=== PATIENT | female | born 1980 | race Caucasian/White ===

== ENCOUNTER 2016-10-28 15:00 | Inpatient (IN) | payer OTHER ==
--- NOTE | ~2016-10-28 | HP ---
Unit #: [id number] #: [id number] Patient: SHEY ROMERO [id number] [facility] [address] [place] [address] [id number] I MR#: [id number] NAME: SHEY ROMERO. ROOM: P176 Age: 36 Sex: F Admission Date: 10/29/2016 : 1980 Attending Physician: Torres Hdez M.D. Admitting Physician: Torres Hdez M.D. Primary Care Physician: Qamar Truong M.D. HISTORY AND PHYSICAL HISTORY OF PRESENT ILLNESS Shey is a 36 year old admitted to [facility] because of her continued abuse of alcohol. PAST MEDICAL HISTORY 1. Long history of alcohol abuse 2. History of DTs PAST SURGICAL HISTORY Nothing reported ALLERGIES Prednisone SOCIAL HISTORY Smokes 1 1/2 packs per day. Drinks at least a fifth of vodka on a daily basis. Has a history of illicit substance abuse to include IV heroin but has been clean for many years. FAMILY HISTORY Medically noncontributory. REVIEW OF SYSTEMS CONSTITUTIONAL: No fever or chills. HEENT: Denies any sore throat, ear pain or runny nose. CARDIOVASCULAR: Denies chest pain, irregular heart rhythm or palpitations. CHEST: Denies shortness of breath or cough. No hemoptysis. GASTROINTESTINAL: Denies nausea, vomiting, diarrhea or chronic constipation. ENDOCRINE: Denies history of increased thirst or urination. No recent significant weight loss or gain. GENITOURINARY: Denies dysuria, frequency, or hematuria. SKIN: Denies any rashes. HEMATOLOGIC: Denies history of increased bleeding or bruising. MUSCULOSKELETAL: Denies any hot, swollen joints. No generalized muscle pain. NEUROLOGIC: Denies problems with vision or speech. No frequent, severe headaches. No numbness, tingling or weakness in any extremities. Denies loss of bladder or bowel control. CURRENT MEDICATIONS 1. Latuda 20 mg q.a.m. Unit #: [id number] #: [id number] Patient: SHEY ROMERO 2. Singular 10 mg q.h.s. 3. [place] 300 mg t.i.d. 4. Nicotine patch 7 mg q day 5. Multivitamin 1 q day 6. Milk of Magnesia p.r.n. 7. Maalox p.r.n. 8. Tylenol p.r.n. 9. Detox protocol PHYSICAL EXAMINATION GENERAL: Alert, well-nourished, in no apparent distress. VITAL SIGNS: Blood pressure 120/74, heart rate 96, respirations 16, temperature 98.6. WEIGHT: 115 pounds. HEIGHT: 5'7". SKIN: Warm and dry without rash or lesion. HEENT: Normocephalic. TMs not viewed. Oral and nasal passages clear. Conjunctivae clear. Pupils equal, round and reactive to light and accommodation. Extraocular movements intact. NECK: Supple without lymphadenopathy or thyromegaly. HEART: Regular rate and rhythm without murmur. LUNGS: Clear. ABDOMEN: Soft, nontender. : Not done. EXTREMITIES: No evidence of cyanosis, clubbing or edema. Moves all extremities without focal deficit. NEUROLOGICAL: Grossly within normal limits. Cranial Nerves: II: Visual holliday are intact. III, IV AND : Extraocular movements are intact. Pupils are equal, round and reactive to light. V: Facial sensation is grossly normal. VII: Facial movements and expression are normal. VIII: Auditory acuity grossly intact. IX, X: Uvula is midline. Phonation is normal. XI: Patient shrugs shoulders and turns head normally. XII: Tongue protrudes in the midline. Sensory and Motor Function: Sensory and motor sensation is grossly normal. Motor: moves all extremities well. Coordination: Gait is normal. Deep Tendon Reflexes: Intact. IMPRESSION Psychiatric admission RECOMMENDATIONS PSYCHIATRIC: Per psychiatrist. MEDICAL: I see no contraindications to participating in facility's activities. MEDICAL PROGNOSIS Good. MEDICAL CONDITION Stable. Dictated by... Unit #: [id number] #: [id number] Patient: SHEY ROMERO Binh Madrid P.A.-C. for Concepción Schroeder/nikko TD: 10/30/2016 00:07 JOB #: [id number] HISTORY AND PHYSICAL Page 1 of 1 X Yani Madrid HISTORY AND PHYSICAL
--- NOTE | ~2016-10-28 | A ---
[facility] Nutrition Therapy DATE: 10/31/16 Patient: CARA ROMERO Physician: JOHNY Address: [address] [facility] Room/Bed: [address], Zip: [place] [address] Admit Date: 10/29/16 Date of : [birth year] Height: 5 7 Weight: 114 52.75976 NUTRITIONAL ASSESSMENT: REASON: 1 point malnutrition risk score re: unintentional weight loss + low BMI Admitting dx: 36 y/o female admitted with depression, detox from ETOH/cocaine/amphetamines PMH: Long history ETOH abuse, withdrawal seizures, 1.5 ppd smoker, Hepatitis C Anthropometrics: Ht: 67" vs 64", Wt: 115 lbs, BMI: 18 vs 19.7 (underweight vs normal weight), past weights 114-117 lbs Labs: Reviewed; WNL Meds: Balance B-50, MVI, Thiamine, Folic acid, Phenergan/Zofran, Loperamide, Mag-Al, Milk of Mg, psych meds noted Assessment: Chart reviewed, events noted. See reason for assessment, admitting dx and PMH as stated above. Patient broke up with her boyfriend of 1.5 years 2 months ago and relapsed 3 weeks ago, has been living with her mother, unemployed since June of this year. Has been drinking a fifth of vodka daily, also tested positive for cocaine and amphetamines. Note conflicting heights in [employer], but I believe the patien is clinically underweight however she is noted to appear well-nourished. She is tolerating a regular diet, reported a 5 lb weight loss in the past month, however her past weights do not reflect this (117 lbs in Apr 2016, 114 lbs Jun 2016, current wt 115 lbs). She reports fair appetite, has been experiencing moderate withdrawal sx to include nausea and stomach cramps, which are being treated medically. See RD recs below. Dx: 1) Underweight r/t drug/ETOH abuse, depression AEB BMI 18. 2) Unintentional weight loss r/t drug/ETOH abuse, depression AEB 1 point malnutrition risk score, patient reports 5 lb weight loss in 1 month. Intervention: See recs below Monitoring, Evaluation and Goals: 1. PO intake > 50-75% of meals. 2. Gradual weight gain towards a healthy BMI range. Monitor: Per MD consult Recommendations: 1. Continue regular diet, encourage oral intake. If desired, please add large portion [facility] Nutrition Therapy DATE: 10/31/16 Patient: CARA ROMERO Physician: JOHNY Address: [address] Room/Bed: [address], Zip: [place] [address] Admit Date: 10/29/16 Date of : [birth year] Height: 5 7 Weight: 114 52.45230 entree to diet order and RD will approve for lunch and dinner. 2. If PO intake is < 50% of meals please order Ensure Plus BID (available in chocolate or vanilla, requires MD order). 3. Continue daily vitamins and control N/V with Zofran. 4. Please weigh q 3 days for monitoring purposes, as the patient is underweight. 5. Please consult dietitian or call [phone] for further nutritional needs. Mild nutrition risk Respectfully, Betty Harvey RD, LD [facility] cc: client file
--- NOTE | ~2016-10-28 | PN ---
Unit #: [id number] #: [id number] Patient: CARA ROMERO [id number] [facility] [address] [place] [address] [id number] I MR#: [id number] NAME: CARA ROMERO ROOM: P176 Age: 36 Sex: F Admission Date: 10/29/2016 : 1980 Attending Physician: Torres Hdez M.D. Admitting Physician: Torres Hdez M.D. Primary Care Physician: Concepción Garcia PROGRESS NOTES DATE 10/31/2016 DISCUSSION The patient's detox continues uneventfully though her participation within the therapeutic milieu has left much to be desired. Should she sustain progress, discharge will likely take place tomorrow. Dictated by... Torres Hdez M.D. CB/bzg TD: 11/01/2016 07:33 JOB #: [id number] [facility] PROGRESS NOTES Page 1 of 1 X Torres Hdez MD X PROGRESS NOTE
--- NOTE | ~2016-10-28 | PN ---
Unit #: [id number] #: [id number] Patient: CARA ROMERO [id number] [facility] [address] [place] [address] [id number] I MR#: [id number] NAME: CARA ROMERO. ROOM: P176 Age: 36 Sex: F Admission Date: 10/29/2016 : 1980 Attending Physician: Torres Hdez M.D. Admitting Physician: Torres Hdez M.D. Primary Care Physician: Concepción Garcia PROGRESS NOTES DATE 10/30/2016 DISCUSSION The patient awakens for interview today. She admits that she has been drinking heavily. She admits that she has been drinking up to a fifth of hard liquor on a daily basis. She is currently denying suicidal or homicidal ideation but continues to complain of significant symptoms of opioid withdrawal. Dictated by... Torres Hdez M.D. CB/tonio TD: 10/30/2016 16:38 JOB #: [id number] [facility] PROGRESS NOTES Page 1 of 1 X Torres Hdez MD X PROGRESS NOTE
--- NOTE | ~2016-10-28 | DS ---
Unit #: [id number] #: [id number] Patient: CARA ROMERO [id number] [facility] [address] [place] [address] [id number] I MR#: [id number] NAME: ACRA ROMERO. ROOM: 76 Age: 36 Sex: F Admission Date: 10/29/2016 : 1980 Discharge Date: 11/01/2016 Attending Physician: Torres Hdez M.D. Primary Care Physician: Qamar Truong M.D. DISCHARGE SUMMARY REASON FOR ADMISSION The patient is a 36-year-old white female admitted with recurrent abuse of alcohol. HOSPITAL COURSE The patient was admitted to the [facility] unit and place on suicidal precautions. [place] level was pending at the time of discharge. The patient remains seclusive to room but her detox was a fairly uneventful one. She was continued on previously prescribed Latuda, lithium and Singulair during her stay in the hospital Neurontin and Adderall were discontinued. On 11/01 the patient requested discharge and it was so ordered. FINAL DIAGNOSES Alcohol use disorder Bipolar disorder unspecified Asthma. DISPOSITION ON DISCHARGE The patient discharged on the following medication: 1. Latuda 20 mg p.r.n. for depression 2. [place] 300 mg three times daily for mood stabilization 3. Singulair 10 mg at h.s. for asthma No dietary or physical restrictions were placed on the patient at the time of discharge. Followup will take place through the auspices of [facility]. The patient's prognosis is considered fair. Dictated by... Torres Hdez M.D. CB/nikko TD: 11/02/2016 05:51 JOB #: [id number] Unit #: [id number] #: [id number] Patient: CARA ROMERO DISCHARGE SUMMARY Page 1 of 1 X Torres Hdez MD X DISCHARGE SUMMARY
--- NOTE | ~2016-10-28 | PA ---
Unit #: [id number] #: [id number] Patient: CARA ROMERO [id number] [place] [address] [id number] MR#: [id number] NAME: CARA ROMERO. ROOM: P176 Age: 36 Sex: F Admission Date: 10/29/2016 : 1980 Date of Assessment: 10/29/2016 Attending Physician: Torres Hdez M.D. Admitting Physician: Torres Hdez M.D. Primary Care Physician: Qamar Truong M.D. PSYCHIATRIC ASSESSMENT IDENTIFYING INFORMATION The patient is a 36-year-old white female admitted after presenting to this facility with complaints of increased alcohol and cocaine use. INFORMANT(S) Chart. Patient could not be aroused for interview. CHIEF COMPLAINT None given. HISTORY OF PRESENT ILLNESS The patient is a 36-year-old white female who presented to this facility last evening with a blood alcohol of 0.396. Her CIWA score was a 20 and she also tested positive for cocaine and amphetamines. The patient was last hospitalized at this facility in June of this year under similar circumstances. She has a history of alcoholic hallucinosis. The patient has recently broken up with her boyfriend, this was about 2 months ago. She has been living with her mother for the past 2 months. The patient claims that she is prescribed Adderall and Neurontin on an outpatient basis. She has also been prescribed Latuda, lithium and Singulair. When seen today, the patient is sleeping soundly and cannot be aroused for interview. PAST PSYCHIATRIC HISTORY Reviewed, no changes. FAMILY HISTORY Reviewed, no changes. SOCIAL HISTORY Reviewed, no changes. MEDICAL HISTORY Reviewed, no changes. MEDICATION HISTORY 1. Adderall XR. 2. Neurontin. 3. Latuda. 4. [place]. 5. Singulair. ALLERGIES Unit #: [id number] #: [id number] Patient: CARA ROMERO Prednisone. MENTAL STATUS EXAM At this time, reveals the patient to be a well-developed, well-nourished soundly sleeping white female. Multiple attempts to arouse her are unsuccessful. ASSETS AND LIABILITIES Patient's assets to be assessed. Liabilities, ongoing substance use. ADMITTING DIAGNOSES 1. Cocaine use disorder. 2. Alcohol use disorder. 3. Bipolar disorder, unspecified. PSYCHIATRIC PLAN/TREATMENT GOALS The patient remains hospitalized for safety and stabilization. We will continue previously prescribed Latuda and lithium carbonate. Adderall will be discontinued for reasons which should be abundantly clear given the patient's extensive substance abuse history. The patient will participate in appropriate burnette and milieu activities and suicide precautions are in place. ESTIMATED LENGTH OF STAY Five to seven days. Dictated by... Torres Hdez M.D. LAURE/tonio TD: 10/29/2016 16:15 JOB #: [id number] PSYCHIATRIC ASSESSMENT Page 1 of 1 X Torres Hdez MD X PSYCHIATRIC ASSESSMENT
[2016-10-30 09:52] LABS: BASOPHIL% 0.5 % (0-2.5); EOSINOPHIL# 0.3 X10e3 (0-0.7); EOSINOPHIL% 4.5 % (0.0-7.0); HEMATOCRIT 39.7 % (35.0-45.0); HEMOGLOBIN 12.9 gm/dL (12.0-16.0); LYMPHOCYTE# 2.2 X10e3 (1.0-3.5); LYMPHOCYTE% 31.2 % (17.0-45.0); MEAN CELL VOLUME 93.2 FL (83-96); MEAN CORPUSCULAR HEMOGLOBIN 30.2 PG (28-34); MEAN CORPUSCULAR HGB CONC 32.4 g/dL (30-36); MEAN PLATELET VOLUME 8.9 FL (6.5-11.5); MONOCYTE# 0.2 X10e3 (0-1.0); MONOCYTE% 3.3 % (3.0-12.0); NEUTROPHIL# 4.3 X10e3 (1.5-7.1); NEUTROPHIL% 60.5 % (40-75); PLATELET COUNT 170 X10e3 (140-420); RED BLOOD COUNT 4.26 X10e (3.90-5.30); WHITE BLOOD COUNT 7.1 X10e3 (4.0-10.5)
[2016-10-30 10:14] LABS: DIFF IND NO
[2016-10-30 10:29] LABS: THYROID STIMULATING HORMONE 1.33 uIU/ml (0.34-5.60)
[2016-10-30 10:36] LABS: FREE THYROXIN (T4) 0.61 ng/dL (0.58-1.64)
[2016-10-30 10:42] LABS: ALBUMIN SERUM 4.3 g/dL (3.5-5.0); BILIRUBIN,TOTAL 1.4 mg/dL (0.2-2.0); CALCIUM SERUM 9.7 mg/dL (8.4-10.2); CREATININE SERUM 0.5 mg/dL (0.6-1.4); GLOM FILT RATE Estimated 125.4 mL/min (>60); POTASSIUM 4.2 mmol/L (3.5-5.1); PROTEIN TOTAL SERUM 7.2 g/dL (6.0-8.3)
[2016-10-31 12:49] LABS: URINE APPEARANCE CLOUDY; URINE BILIRUBIN NEG (NEG); URINE BLOOD 2+ (NEG); URINE COLOR DK YELLOW; URINE GLUCOSE NEG (NEG); URINE KETONE NEG (NEG); URINE LEUKOCYTE ESTERASE 2+ (NEG); URINE NITRATE POS (NEG); URINE PH 7.5 (5-8); URINE PROTEIN NEG (NEG); URINE SPECIFIC GRAVITY 1.018 (1.003-1.035)
[2016-10-31 12:53] LABS: URBCS1 AUWI 0-2 /[HPF] (0-2); URINE BACTERIA AUWI 4+ (NEGATIVE); URINE SQUAMOUS EPITHELIAL CELL OCC /[HPF]; UWBCS1 AUWI 25-50 (0-5)
[2016-10-31 13:17] LABS: URINE CRYSTALS CALCIUM OXALATE /[HPF]; URINE MUCUS PRESENT
[2016-10-31 13:35] LABS: AMPHETAMINE NEG (NEG); BARBITURATES NEG (NEG); BENZODIAZEPINES POS (NEG); COCAINE POS (NEG); MARIJUANA NEG (NEG); OPIATES NEG (NEG); TRICYCLIC ANTIDEPRESSANTS NEG (NEG); U METHADONE NEG (NEG)
== END 2016-11-01 16:30 | disposition home or self-care (01) | DRG 897 ==
LOC: P1E 10-29 04:32
PROVIDERS: Specialist
DX: F14.10 Cocaine abuse, uncomplicated (principal); F31.9 Bipolar disorder, unspecified; F10.10 Alcohol abuse, uncomplicated; Y90.8 Blood alcohol level of 240 mg/100 ml or more; F17.210 Nicotine dependence, cigarettes, uncomplicated
CPT/HCPCS: 80053; 80307; 81003; 84439; 84443; 84703; 85025; 86592

== ENCOUNTER 2016-10-28 18:25 | Emergency (ER) | payer OTHER ==
[2016-10-28 19:11] LABS: BASOPHIL# 0.1 X10e3 (0-0.3); BASOPHIL% 0.9 % (0-2.5); EOSINOPHIL# 0.1 X10e3 (0-0.7); EOSINOPHIL% 1.7 % (0.0-7.0); HEMATOCRIT 41.8 % (35.0-45.0); HEMOGLOBIN 13.7 gm/dL (12.0-16.0); LYMPHOCYTE# 2.5 X10e3 (1.0-3.5); LYMPHOCYTE% 32.9 % (17.0-45.0); MEAN CELL VOLUME 92.5 FL (83-96); MEAN CORPUSCULAR HEMOGLOBIN 30.4 PG (28-34); MEAN CORPUSCULAR HGB CONC 32.9 g/dL (30-36); MEAN PLATELET VOLUME 7.9 FL (6.5-11.5); MONOCYTE# 0.3 X10e3 (0-1.0); MONOCYTE% 4.2 % (3.0-12.0); NEUTROPHIL# 4.5 X10e3 (1.5-7.1); NEUTROPHIL% 60.3 % (40-75); PLATELET COUNT 204 X10e3 (140-420); RED BLOOD COUNT 4.52 X10e (3.90-5.30); RED CELL DISTRIBUTION WIDTH 15.8 % (11.0-15.5); WHITE BLOOD COUNT 7.5 X10e3 (4.0-10.5)
[2016-10-28 19:14] LABS: DIFF IND NO
[2016-10-28 19:37] LABS: ALBUMIN SERUM 4.7 g/dL (3.5-5.0); BILIRUBIN, DIRECT 0.1 mg/dL (0.0-0.2); BILIRUBIN,INDIRECT 0.8 mg/dL (0.0-0.9); BILIRUBIN,TOTAL 0.9 mg/dL (0.2-2.0); CALCIUM SERUM 8.9 mg/dL (8.4-10.2); CREATININE SERUM 0.6 mg/dL (0.6-1.4); GLOM FILT RATE Estimated 118.1 mL/min (>60); POTASSIUM 3.9 mmol/L (3.5-5.1); PROTEIN TOTAL SERUM 8.2 g/dL (6.0-8.3)
[2016-10-28 20:27] LABS: AMPHETAMINE POS (NEG); BARBITURATES NEG (NEG); BENZODIAZEPINES NEG (NEG); COCAINE POS (NEG); MARIJUANA NEG (NEG); OPIATES NEG (NEG); TRICYCLIC ANTIDEPRESSANTS NEG (NEG); U METHADONE NEG (NEG)
== END 2016-10-29 04:11 | disposition short-term general hospital (02) ==
LOC: CED 18:25
PROVIDERS: Emergency Medicine
DX: F10.229 Alcohol dependence with intoxication, unspecified (principal); F32.9 Major depressive disorder, single episode, unspecified; F17.200 Nicotine dependence, unspecified, uncomplicated
CPT/HCPCS: 36415; 80048; 80076; 80307; 85025; 99283; G0480

== ENCOUNTER 2017-01-22 15:00 | Inpatient (IN) | payer OTHER ==
[~2017-01-22] VITALS: Ht 170.2 cm; Wt 51.7 kg
--- NOTE | ~2017-01-22 | A ---
[facility] Nutrition Therapy DATE: 01/24/17 Patient: CARA ROMERO Physician: JOHNY Address: [address] [place] [address] Room/Bed: [address], Zip: [place] [address] Admit Date: 01/22/17 Date of : [birth year] Height: 5 7 Weight: 113 51.614421 NUTRITIONAL ASSESSMENT: REASON: LOW BMI (17.9) PATIENT ADMITTED FOR ETOH DETOX AND BIPOLAR DISORDER PMH: HEP C Anthropometrics: HT: 67" VS 64", WT: 114#, BMI: 17.9 VS 19.6 (UNDERWEIGHT VS NORMAL WEIGHT) Labs: 01/23/17- GLU: 124, BUN: 5, CREAT: 0.3, POSITIVE BHCG Meds: DETOX PROTOCOL (INCLUDES: MVI, VIT B COMPLEX, ZOFRAN, THIAMIN, AND FOLIC ACID) Assessment: PATIENT IS A 36 Y/O FEMALE ADMITTED FOR BIPOLAR DISORDER AND ETOH DETOX. PATIENT IS CURRENTLY UNEMPLOYED, LIVES WITH HER MOTHER, SMOKES 1/2 PPD, HAS A HX OF HEROIN ABUSE, AND DRINKS ETOH DAILY X 2 WEEKS. PATIENT'S STEPFATHER 2.5 WEEKS AGO AND SHE RELAPSED ON ETOH. IT IS NOTED THAT PATIENT HAS BEEN NON-COMPLIANT WITH HER MEDICATIONS PRIOR TO ADMIT AND SHE HAS A HX OF INPATIENT PSYCH AND CHEMICAL DEPENDENCY HOSPITALIZATIONS. UPON ADMIT PATIENT STATED AN INCREASED APPETITE WITH FLUCTUATING WEIGHTS OF ~5#. WEIGHT HX PER MEDITECH SHOWS STABLE WEIGHTS X LAST 9 MONTHS AND HER UBW SEEMS TO BE ~115#. NURSING REPORTS POOR PO INTAKES. PATIENT IS ACTIVELY DETOXING. IT WAS ALSO DISCOVERED YESTERDAY (01/23/17) THAT PATIENT IS . SHE IS CURRENTLY EXPERIENCING NAUSEA AND VOMITING, WHICH MAY BE ATTRIBUTED TO ETOH DETOX AND POSSIBLY MORNING SICKNESS. IT IS UNCLEAR ATT HOW FAR ALONG PATIENT IS. THE MEDICAL DOCTOR HAS BEEN CONSULTED TO ASSESS PATIENT'S . SHE IS CURRENTLY ON A REGULAR DIET. IT IS BELIEVED THAT PATIENT IS CLINICALLY UNDERWEIGHT, BUT SHE IS NOTED TO BE WELL-DEVELOPED AND WELL-NOURISHED. THERE ARE NO SKIN ISSUES NOTED ATT. WILL CONTINUE TO F/U WITH PO INTAKES, WEIGHT, AND . NURSING REPORTS PATIENT IS CURRENTLY UNAWARE THAT SHE IS AND THEY ARE WAITING FOR DR. DURAN. Dx: INADEQUATE NUTRIENT INTAKE R/T CURRENT CONDITIONS, DETOX AEB LOW BMI, POOR PO INTAKES Intervention: REGULAR DIET, MEDS PER MD, DETOX, PSYCH Monitoring, Evaluation and Goals: 1. ADEQUATE PO INTAKES >50% OF MEALS 2. PREVENT, CORRECT MICRO/MACRO NUTRIENT DEFICIENCIES 3. WEIGHT; PROMOTE A STEADY WEIGHT GAIN TOWARDS A HEALTHY BMI OF 19-25 [facility] Nutrition Therapy DATE: 01/24/17 Patient: CARA Binh ROMERO Physician: JOHNY Address: [address] [place] [address] [facility] Room/Bed: [address], Zip: [place] [address] Admit Date: 01/22/17 Date of : [birth year] Height: 5 7 Weight: [phone] MONITOR: WEIGHTS, LABS, PO/FLUID INTAKES Recommendations: 1. CONTINUE REGULAR DIET TOLERATED. OFFER SNACKS BETWEEN MEALS. IF PATIENT HAS C/O HUNGER PLEASE ORDER LARGER PORTIONS AND RD WILL APPROVE 2. PATIENT IS CURRENTLY EXPERIENCING NAUSEA AND VOMITING. SEND PATIENT SICK TRAYS IF NECESSARY. PATIENT RECEIVES ZOFRAN PRN 3. ENCOURAGE ADEQUATE PO AND FLUID INTAKES. PATIENT HAS AN INCREASED RISK OF DEHYDRATION D/T VOMITING. 4. OBTAIN WEIGHTS ROUTINELY (EVERY 3-4 DAYS) 5. IF PO INTAKES CONTINUE TO BE BELOW 50% OF MEALS CONSIDER ORDERING ENSURE BID TO PROMOTE ADEQUATE PO AND FLUID INTAKES 6. CONSULT RD WITH ANY FURTHER NUTRITION QUESTIONS OR CONCERNS. PATIENT IS CURRENTLY UNAWARE SHE IS . THIS RD UNABLE TO GIVE ANY NUTRITION EDUCATION ATT. RD TO F/U PER PROTOCOL AND PRN R/T PATIENT MILDLY COMPROMISED Respectfully, RADHA MCCONNELL, RD, LD [facility] Nutrition[facility] cc: client file
--- NOTE | ~2017-01-22 | PN ---
Unit #: [id number] #: [id number] Patient: CARA ROMERO [id number] [facility] [address] [place] [address] [id number] MR#: [id number] NAME: CARA ROMERO. ROOM: P185 Age: 36 Sex: F Admission Date: 01/22/2017 : 1980 Attending Physician: Torres Hdez M.D. Admitting Physician: Torres Hdez M.D. Primary Care Physician: Concepción Garcia PROGRESS NOTES DATE 01/24/2017 DISCUSSION We have learned that the patient has a positive HCG. According, any potentially teratogenic medications are being held. I have ordered an initiation of vitamins as well as quantitative HCG. The patient seems unpleasantly surprised by news of her potential . Her detox is otherwise an uneventful one though she is continuing to complain of some significant physical discomfort. Dictated by... Torres Hdez M.D. CB/tonio TD: 01/24/2017 15:40 JOB #: [id number] [facility] PROGRESS NOTES Page 1 of 1 X Torres Hdez MD X PROGRESS NOTE
--- NOTE | ~2017-01-22 | PA ---
Unit #: [id number] #: [id number] Patient: CARA ROMERO [id number] [facility] [address] [place] [address] [id number] MR#: [id number] NAME: CARA ROMERO. ROOM: P185 Age: 36 Sex: F Admission Date: 01/22/2017 : 1980 Date of Assessment: 01/23/2017 Attending Physician: Torres Hdez M.D. Admitting Physician: Torres Hdez M.D. Primary Care Physician: Qamar Truong M.D. PSYCHIATRIC ASSESSMENT IDENTIFYING INFORMATION The patient is a 36-year-old divorce white female admitted to the [address] [place] [address] with a recurrence of alcohol abuse. INFORMANT(S) Patient. RELIABILITY Good. CHIEF COMPLAINT I relapsed. HISTORY OF PRESENT ILLNESS The patient is a 36-year-old white female last discharged from this facility on 11/01/2016. She is readmitted with a recent relapse of alcohol use. The patient reports that the of her father was precipitant to a binge which has lasted approximately 1 month with the patient stating that she is drinking approximately one fifth a day. She denies abuse of other psychoactive substances. She reports that she has been sporadically compliant her prescribed home psychotropic medications since her binge began. For a more complete history of present illness, please refer to previous dictated notes. PAST PSYCHIATRIC HISTORY Reviewed, no changes. FAMILY HISTORY/SOCIAL HISTORY Reviewed, no changes. MEDICAL HISTORY Reviewed, no changes. MEDICATION HISTORY 1. [place]. 2. Latuda. 3. Adderall. 4. Neurontin. 5. Singulair. ALLERGIES Prednisone, bee venom. Unit #: [id number] #: [id number] Patient: CARA ROMERO MENTAL STATUS EXAM At this time, reveals the patient to be a well-developed, well-nourished white female appearing her stated age. She is in no apparent physical distress at the time of examination. She is awake, oriented in all spheres. Her mood is mildly dysphoric. Her affect congruent. Speech is generally relevant and coherent. There are no gross deficits in memory or cognition noted. Intelligence is judged to be in the average range based on fund of knowledge. The patient is cooperative throughout the interview. She is currently denying suicidal/homicidal ideation or psychotic features. Judgement and insight appear to be intact. ASSETS AND LIABILITIES Patient's assets, motivation for change. Liabilities, lack of resources. ADMITTING DIAGNOSES 1. Alcohol use disorder. 2. Bipolar disorder, unspecified by history. PSYCHIATRIC PLAN/TREATMENT GOALS The patient remains hospitalized for safety and stabilization. Routine detoxification protocol has been initiated and we will restart the patient's previously prescribed psychotropic medications with the exception of Neurontin and Adderall. The patient will participate in appropriate burnette and milieu activities. ESTIMATED LENGTH OF STAY Five days. Dictated by... Torres Hdez M.D. LAURE/tonio TD: 01/23/2017 16:18 JOB #: [id number] PSYCHIATRIC ASSESSMENT Page 1 of 1 X Torres Hdez MD X PSYCHIATRIC ASSESSMENT
--- NOTE | ~2017-01-22 | HP ---
Unit #: [id number] #: [id number] Patient: CARA ROMERO [id number] [facility] [address] [place] [address] [id number] MR#: [id number] NAME: CARA ROMERO. ROOM: P185 Age: 36 Sex: F Admission Date: 01/22/2017 : 1980 Attending Physician: Torres Hdez M.D. Admitting Physician: Torres Hdez M.D. Primary Care Physician: Qamar Truong M.D. HISTORY AND PHYSICAL HISTORY OF PRESENT ILLNESS The patient is a 36-year-old female who has been admitted to [facility] for bipolar disorder and alcohol use. PAST MEDICAL HISTORY 1. Alcohol abuse. 2. Bipolar. 3. History of DTs. 4. Hepatitis C. PAST SURGICAL HISTORY None. ALLERGIES Prednisone and bees. SOCIAL HISTORY Patient endorses tobacco and alcohol use. She does have a history of illicit drug abuse but states that she has not used in many years. FAMILY HISTORY Medically noncontributory. REVIEW OF SYSTEMS CONSTITUTIONAL: Denies fever or chills. HEENT: Denies any sore throat, ear pain or runny nose. CARDIOVASCULAR: Denies chest pain, irregular heart rhythm or palpitations. CHEST: Denies shortness of breath or cough. No hemoptysis. GASTROINTESTINAL: Patient denies nausea, diarrhea or chronic constipation. ENDOCRINE: Denies increased thirst or urination. Denies recent significant weight loss or gain. GENITOURINARY: Denies dysuria, frequency, or hematuria. SKIN: Denies any rashes. HEMATOLOGIC: Denies increased bleeding or bruising. MUSCULOSKELETAL: Denies hot, swollen joints. No generalized muscle pain. NEUROLOGIC: Denies problems with speech, vision, numbness, tingling. Denies loss of bowel or bladder control. HOME MEDICATIONS 1. [place] 300 mg p.o. t.i.d. 2. Latuda 20 mg p.o. at night. 3. Adderall XR 30 mg p.o. daily. 4. Neurontin 160 mg p.o. at night. Unit #: [id number] #: [id number] Patient: CARA ROMERO 5. Singulair 10 mg p.o. at night. PHYSICAL EXAMINATION GENERAL: Patient is awake, alert, in no acute distress. VITAL SIGNS: Temperature 98.4, heart rate 98, respirations 16, blood pressure 119/76. HEIGHT: 5 feet 7. WEIGHT: 114 pounds. HEENT: Head is atraumatic, normocephalic. Pupils equal, round, reactive. Extraocular movements are intact. No drainage from ears or nares. NECK: Supple. Trachea is midline. HEART: Regular rate and rhythm. LUNGS: Clear. ABDOMEN: Soft, nontender, nondistended. : Not done. SKIN: Warm, dry without unusual rashes or lesions. EXTREMITIES: No clubbing, edema or cyanosis. NEUROLOGICAL: Cranial nerves II through XII intact. No focal deficits. Sensory and motor functioning grossly normal. Moves all extremities well. Coordination, gait normal. Deep tendon reflexes intact. IMPRESSION Psychiatric admission. RECOMMENDATIONS PSYCHIATRIC: Will be per psychiatry. MEDICAL: I see no contraindication to participate in facility's activities. MEDICAL PROGNOSIS Fair. MEDICAL CONDITION Stable. Dictated by... Dona Li A.P.R.N. for Stephan Colmenares M.D. AM/tonio TD: 01/22/2017 21:22 JOB #: [id number] HISTORY AND PHYSICAL Page 1 of 1 X Dona Li MOTOR MAN X HISTORY AND PHYSICAL
--- NOTE | ~2017-01-22 | DS ---
Unit #: [id number] #: [id number] Patient: CARA ROMERO [id number] [facility] [address] [place] [address] [id number] MR#: [id number] NAME: CARA ROMERO. ROOM: P185 Age: 36 Sex: F Admission Date: 01/22/2017 : 1980 Discharge Date: 01/27/2017 Attending Physician: Torres Hdez M.D. Primary Care Physician: Qamar Truong M.D. DISCHARGE SUMMARY REASON FOR ADMISSION The patient is a 36-year-old , white female, admitted to the [facility] unit for alcohol detox. HOSPITAL COURSE The patient was admitted to the [facility] unit and placed on routine detoxification protocol for alcohol. After learning that her beta hCG was positive, the patient's medications were held and her detox protocol made much less aggressive in accordance with risk of harm to the fetus. On 01/23/2017, the patient was sent out after she had begun to experience bleeding. It was concern that the patient was possibly having a miscarriage and in fact, this was found to be the case at the local emergency room. By 01/24/2017, the patient returned to the hospital. She denied any suicidal or homicidal ideation, but continued to exhibit symptoms of withdrawal. By 01/27/2017, the patient was in bright spirits and had made arrangements to go to [facility] Discharge was ordered. FINAL DIAGNOSES Alcohol use disorder; bipolar disorder, unspecified. DISPOSITION ON DISCHARGE The patient is discharged on the following medications; Latuda 20 mg daily for bipolar, depression. DISCHARGE INSTRUCTIONS No dietary or physical restrictions were placed on the patient at the time of discharge. FOLLOWUP Followup will take place through the auspices of community mental health resources and "[facility]." PROGNOSIS The patient's prognosis is considered fair. Dictated by... Torres Hdez M.D. CB/elizabeth TD: 01/28/2017 04:47 Unit #: [id number] #: [id number] Patient: CARA ROMERO JOB #: [id number] DISCHARGE SUMMARY Page 1 of 1 X Torres Hdez MD DISCHARGE SUMMARY
--- NOTE | ~2017-01-22 | PN ---
Unit #: [id number] #: [id number] Patient: CARA ROMERO [id number] [facility] [address] [place] [address] [id number] MR#: [id number] NAME: CARA ROMERO. ROOM: P185 Age: 36 Sex: F Admission Date: 01/22/2017 : 1980 Attending Physician: Torres Hdez M.D. Admitting Physician: Torres Hdez M.D. Primary Care Physician: Concepción Garcia PROGRESS NOTES DATE 01/25/2017 DISCUSSION The patient was sent out last evening and has apparently suffered a miscarriage. We will recheck her beta HCG tomorrow. In the meantime, we are continuing to assume that the patient is and are proceeding with a cautious detoxification protocol related thereto. Dictated by... Torres Hdez M.D. CB/tonio TD: 01/25/2017 14:11 JOB #: [id number] [facility] PROGRESS NOTES Page 1 of 1 X Torres Hdez MD X PROGRESS NOTE
--- NOTE | ~2017-01-22 | PN ---
Unit #: [id number] #: [id number] Patient: CARA ROMERO [id number] [facility] [address] [place] [address] [id number] MR#: [id number] NAME: CARA ROMERO. ROOM: P185 Age: 36 Sex: F Admission Date: 01/22/2017 : 1980 Attending Physician: Torres Hdez M.D. Admitting Physician: Torres Hdez M.D. Primary Care Physician: Concepción Garcia PROGRESS NOTES DATE 01/26/2017 DISCUSSION The patient is abed and continues to complain of significant GI discomfort. She has been on a clear liquid diet secondary to her degree of physical discomfort related to her withdrawal. A repeat beta HCG has been drawn this morning the results of which are pending at this time. Dictated by... Torres Hdez M.D. CB/nikko TD: 01/26/2017 23:46 JOB #: [id number] [facility] PROGRESS NOTES Page 1 of 1 X Torres Hdez MD X PROGRESS NOTE
[2017-01-23 09:44] LABS: BASOPHIL% 0.2 % (0-2.5); EOSINOPHIL% 0.2 % (0.0-7.0); HEMATOCRIT 35.1 % (35.0-45.0); HEMOGLOBIN 11.7 gm/dL (12.0-16.0); LYMPHOCYTE# 0.9 X10e3 (1.0-3.5); LYMPHOCYTE% 9.9 % (17.0-45.0); MEAN CELL VOLUME 95.5 FL (83-96); MEAN CORPUSCULAR HEMOGLOBIN 31.8 PG (28-34); MEAN CORPUSCULAR HGB CONC 33.3 g/dL (30-36); MEAN PLATELET VOLUME 9.3 FL (6.5-11.5); MONOCYTE# 0.2 X10e3 (0-1.0); MONOCYTE% 2.7 % (3.0-12.0); NEUTROPHIL# 7.9 X10e3 (1.5-7.1); PLATELET COUNT 117 X10e3 (140-420); RED BLOOD COUNT 3.68 X10e (3.90-5.30); RED CELL DISTRIBUTION WIDTH 14.3 % (11.0-15.5); WHITE BLOOD COUNT 9.1 X10e3 (4.0-10.5)
[2017-01-23 09:45] LABS: URINE APPEARANCE CLEAR; URINE BILIRUBIN NEG (NEG); URINE BLOOD 1+ (NEG); URINE COLOR YELLOW; URINE GLUCOSE NEG (NEG); URINE KETONE NEG (NEG); URINE LEUKOCYTE ESTERASE TRACE (NEG); URINE NITRATE POS (NEG); URINE PH 7.5 (5-8); URINE PROTEIN NEG (NEG); URINE SPECIFIC GRAVITY 1.003 (1.003-1.035); URINE UROBILINOGEN 0.2 MG/DL (NEG)
[2017-01-23 09:46] LABS: DIFF IND NO
[2017-01-23 09:49] LABS: URBCS1 AUWI 0-2 /[HPF] (0-2); URINE BACTERIA AUWI 1+ (NEGATIVE); UWBCS1 AUWI 0-2 (0-5)
[2017-01-23 10:16] LABS: AMPHETAMINE NEG (NEG); BARBITURATES NEG (NEG); BENZODIAZEPINES NEG (NEG); COCAINE NEG (NEG); MARIJUANA NEG (NEG); OPIATES NEG (NEG); TRICYCLIC ANTIDEPRESSANTS NEG (NEG); U METHADONE NEG (NEG)
[2017-01-23 10:27] LABS: ALBUMIN SERUM 3.7 g/dL (3.5-5.0); BILIRUBIN,TOTAL 1.5 mg/dL (0.2-2.0); BUN/CREATININE RATIO 16.66; CREATININE SERUM 0.3 mg/dL (0.6-1.4); GLOM FILT RATE Estimated 148.4 mL/min (>60); POTASSIUM 3.8 mmol/L (3.5-5.1); PROTEIN TOTAL SERUM 6.7 g/dL (6.0-8.3)
[2017-01-23 10:53] LABS: URINE SQUAMOUS EPITHELIAL CELL FEW /[HPF]
== END 2017-01-27 15:20 | DRG 897 ==
LOC: P1E 17:22
PROVIDERS: Specialist
PROC: HZ2ZZZZ Detoxification Services for Substance Abuse Treatment (ICD-10-PCS; principal; 2017-01-22)
DX: F10.10 Alcohol abuse, uncomplicated (principal); F31.9 Bipolar disorder, unspecified; Z86.19 Personal history of other infectious and parasitic diseases; F17.200 Nicotine dependence, unspecified, uncomplicated
CPT/HCPCS: 80053; 80307; 81003; 84702; 84703; 85025; 86592; J2550